=== PATIENT | female | born 1950 | race Caucasian/White ===

== ENCOUNTER 2020-10-19 12:33 | Emergency (ER) | payer OTHER ==
[~2020-10-19] VITALS: Ht 149.9 cm; Wt 69.9 kg
[2020-10-19 12:48] VITALS: BP 102/56; Ht 149.9 cm; Wt 69.9 kg
[2020-10-19 14:12] LABS: UA SPECIFIC GRAVITY 1.015 (1.005-1.035); microscopic required? YES; urine erythrocyte NEGATIVE (NEGATIVE)
== END 2020-10-19 18:13 | disposition left against medical advice (07) ==
LOC: ED 12:33
PROVIDERS: Emergency Medicine
DX: Z53.21 Procedure and treatment not carried out due to patient leaving prior to being seen by health care provider (principal)
CPT/HCPCS: 82962